=== PATIENT | female | born 1960 | race Caucasian/White ===

== ENCOUNTER 2018-11-12 06:45 | Day surgery (SDC) | payer OTHER ==
[2018-11-12] MEDS ORDERED: MIDAZOLAM 1 MG/ML 2 ML INJ ×2 (09:33→09:34)
[2018-11-12] MEDS ORDERED: FENTAnyl 50 MCG/ML VIAL (09:34)
== END 2018-11-12 12:12 | disposition home or self-care (01) ==
LOC: GIL 06:45
DX: Z12.11 Encounter for screening for malignant neoplasm of colon (principal); K64.8 Other hemorrhoids; I10 Essential (primary) hypertension; E11.9 Type 2 diabetes mellitus without complications
CPT/HCPCS: 45378; 82962; 88305